=== PATIENT | male | born 2000 | race Caucasian/White ===

== ENCOUNTER 2024-02-16 20:07 | Emergency (ER) | payer MEDICAID, OTHER ==
[~2024-02-16] VITALS: Ht 177.8 cm; Wt 131.1 kg
[2024-02-16] MEDS ORDERED: KETOROLAC TROMETHAMINE INJ 30 MG/ML VIAL ONE (21:14)
[2024-02-16] MEDS ORDERED: CARI350T PO (21:15)
[2024-02-16] MEDS: KETOROLAC TROMETHAMINE INJ 60 MG/2 ML VIAL IM ONE (21:19)
[2024-02-16 21:20] VITALS: BP 128/78; TEMP 98.9; O2SAT 99
== END 2024-02-16 21:30 | disposition home or self-care (01) ==
LOC: ER 20:10
DX: M54.50 Low back pain, unspecified (principal); I10 Essential (primary) hypertension; Z96.641 Presence of right artificial hip joint
CPT/HCPCS: 99283; 96372; J1885

== ENCOUNTER 2024-05-21 08:04 | Emergency (ER) | payer MEDICAID, OTHER ==
[~2024-05-21] VITALS: Ht 175.3 cm; Wt 131.5 kg
[~2024-05-21 08:04] MED LIST: CARI350T PO
[2024-05-21 08:10] VITALS: BP 159/93; TEMP 98.3; O2SAT 98
[2024-05-21] MEDS ORDERED: CARB15DR12 EACH EAR (08:36)
[2024-05-21] MEDS ORDERED: FLUT16SP16 BNOSTRILS (08:36)
[2024-05-21] MEDS ORDERED: CIPR7.5D9 EACH EAR (08:36)
== END 2024-05-21 09:20 | disposition home or self-care (01) ==
LOC: ER 08:12
DX: H60.93 Unspecified otitis externa, bilateral (principal); I10 Essential (primary) hypertension; Z79.899 Other long term (current) drug therapy